=== PATIENT | female | born 1990 | race Caucasian/White ===

== ENCOUNTER 2016-05-13 19:00 | Emergency (ER) | payer MEDICAID ==
[~2016-05-13] VITALS: Ht 175.3 cm; Wt 91.8 kg
[~2016-05-13 19:00] MED LIST: AUGM875T PO; DIFL100T PO; MOME17I EACH NARE
[2016-05-13 19:30] VITALS: BP 100/69; PULSE 109; RESP 18; TEMP 101.2; O2SAT 98
--- NOTE | 2016-05-13 19:40 | PD ---
HPI Chief Complaint: Cold / Flu Symptoms Time Seen by Provider: 19:40 Travel History International Travel<30 days: No Contact w/Intl Traveler<30days: No History of Present Illness HPI 26-year-old female presents to the ED for evaluation 3 day history of sore throat, fevers, sinus congestion, rhinorrhea, nonproductive cough. Patient is a current smoker. Symptoms onset gradually. Patient endorses nausea as well as a history of recurrent strep pharyngitis. She denies headache, dizziness, difficulty swallowing, chest pain, shortness of breath, abdominal pain, dysuria , back pain. No treatment attempted at home. Patient states that she gets "terrible yeast infections" with amoxicillin and has not completed antibiotics the last few times due to this. Denies chronic health problems, takes no daily medications. NKDA. PFSH Past Medical History Asthma: No Blood Disorders: No Anxiety: Yes (PANIC ATTACKS) Heart Rhythm Problems: No Cancer: No Cardiovascular Problems: No High Cholesterol: No Chemotherapy: No Chest Pain: No Congestive Heart Failure: No COPD: No Diabetes: No Diminished Hearing: No Endocrine: No Genitourinary: No Immune Disorder: No Kidney Stones: Yes Musculoskeletal: No Neurologic: No Psychiatric: No Reproductive: No Respiratory: No Radiation Therapy: No Sleep Apnea: No Thyroid Disease: No : 1 Para: 0 Miscarriage: 0 Past Surgical History Other Surgery: No Social History Alcohol Use: No Tobacco Use: No Substance Use: Yes (WEED ) Allergies-Medications (Allergen,Severity, Reaction): Coded Allergies: Naproxen (Verified Allergy, Intermediate, DIZZINESS, 05/13/16) Latex (Verified Allergy, Mild, RASH, 05/13/16) Reported Meds & Prescriptions Reported Meds & Active Scripts Active Keflex (Cephalexin) 500 Mg Cap 500 Mg PO Q12H 10 Days Review of Systems Except as stated in HPI: all other systems reviewed are Neg Physical Exam Narrative GENERAL: Well-nourished, well-developed ill-appearing white female in no acute distress. SKIN: Warm and dry. HEAD: Normocephalic. Atraumatic. EYES: No scleral icterus. No injection or drainage. PERRLA. EOMI. ENT: Pearly chairez tympanic membranes bilaterally. Nasal mucosa is moist. Oropharynx mild to moderate erythema and scattered white exudates. Tonsils 1+ bilaterally. Airway patent. Uvula midline. NECK: Supple, trachea midline. No JVD. Tender right-sided anterior cervical lymphadenopathy. CARDIOVASCULAR: Regular rate and rhythm without murmurs, gallops, or rubs. 2+ DP and radial pulses bilaterally. RESPIRATORY: Breath sounds clear and equal bilaterally. No accessory muscle use. GASTROINTESTINAL: Abdomen soft, non-tender, nondistended. + Bowel sounds MUSCULOSKELETAL: No cyanosis, or edema. Patient is observed to walk with a normal gait. BACK: Nontender without obvious deformity. No CVA tenderness. Data Data Last Documented VS Vital Signs Date Time Temp Pulse Resp B/P Pulse Ox O2 Delivery O2 Flow Rate FiO2 05/13/16 19:40 Room Air 05/13/16 19:30 101.2 109 18 100/69 98 Orders Acetaminophen (Tylenol) (05/13/16 20:00) Ibuprofen (Motrin) (05/13/16 20:00) Ondansetron Odt (Zofran Odt) (05/13/16 20:00) Cephalexin (Keflex) (05/13/16 20:00) Group A Rapid Strep Screen (05/13/16 19:46) MDM Medical Decision Making Medical Screen Exam Complete: Yes Emergency Medical Condition: Yes Differential Diagnosis Viral syndrome versus sinusitis versus pharyngitis versus strep pharyngitis versus influenza versus other Narrative Course 26-year-old female presents to the ED for evaluation 3 day history of sore throat, fevers, sinus congestion, rhinorrhea, nonproductive cough, nausea. Patient is a current smoker, endorses history of recurrent strep throat. She denies headache, dizziness, difficulty swallowing, chest pain, shortness of breath, abdominal pain, dysuria, back pain. Patient states that she gets "terrible yeast infections" with amoxicillin and has not completed antibiotics the last few times due to this. Vitals reviewed. Patient is febrile and tachycardic on presentation. Physical exam reveals an ill-appearing white female in no acute distress. Primary tympanic membranes bilaterally. Oropharynx moderately erythematous with patchy white exudates. Tonsils 1+ bilaterally. Uvula midline. Airway patent. Positive right-sided tender lymphadenopathy, remaining physical exam is otherwise unremarkable. Patient was administered sublingual Zofran, by mouth Tylenol, by mouth ibuprofen and by mouth Keflex. She was allowed to orally rehydrate. On recheck the patient does endorse improvement of her symptoms. She is prescribed Keflex 500 mg twice a day for the next 10 days. She is instructed to continue with Tylenol and Motrin as needed for pain and fevers, take all medication as prescribed, follow up with the ENT. She indicated understanding of instructions and is amenable to plan of care. This patient is stable and discharged home. Diagnosis Primary Impression: Strep pharyngitis Referrals: Ear / Nose / Throat Specialist Patient Instructions: General Instructions, Strep Throat (ED) Additional Instructions: Rest, hydrate. Push fluids such as sports drinks, Pedialyte, popsicles, clear broth. Alternating Motrin and Tylenol every 4-6 hours as needed for continued fever. Take all antibiotics as prescribed, even if your symptoms improve during the course of treatment. Replace toothbrush at the end of this illness. Follow-up with the ear nose throat specialist for evaluation of recurrent strep throat.. Return to the ED for any urgent or emergent medical condition. Med/Other Pt SpecificInfo: Prescription(s) given Scripts Cephalexin (Keflex)500 Mg [id number] Mg PO Q12H 10 Days Ref 0 Prov:Pete Delong MD 05/13/16 Disposition: 01 DISCHARGE HOME Condition: Stable Jessica Henry May 13, 2016 19:40
[2016-05-13] MEDS ORDERED: CEPH-460 PO (19:49)
[2016-05-13] MEDS ORDERED: ACETAMINOPHEN 500 MG CPLT PO ONE (20:00)
[2016-05-13] MEDS ORDERED: ONDANSETRON ODT 4 MG TAB PO ONE (20:00)
[2016-05-13] MEDS ORDERED: IBUPROFEN 600 MG TAB PO ONE (20:00)
[2016-05-13] MEDS ORDERED: CEPHALEXIN MONOHYDRATE 500 MG CAP PO ONE (20:00)
[2016-05-13 20:21] VITALS: TEMP 100.3
== END 2016-05-13 20:22 | disposition home or self-care (01) ==
LOC: PHEFT 19:00
DX: J02.0 Streptococcal pharyngitis (principal); F17.210 Nicotine dependence, cigarettes, uncomplicated
CPT/HCPCS: 87081; 87880; 99283

== ENCOUNTER 2017-07-17 08:41 | Emergency (ER) | payer SELFPAY ==
[~2017-07-17] VITALS: Ht 175.3 cm; Wt 96.9 kg
[~2017-07-17 08:41] MED LIST changes: -AUGM875T PO; +CEPH-460 PO; -DIFL100T PO; -MOME17I EACH NARE
[2017-07-17 08:49] VITALS: BP 106/56; PULSE 83; RESP 16; TEMP 98.6; O2SAT 98
--- NOTE | 2017-07-17 09:09 | PD ---
HPI Chief Complaint: ENT Complaint Time Seen by Provider: 08:59 Travel History International Travel<30 days: No Contact w/Intl Traveler<30days: No Traveled to known affect area: No History of Present Illness HPI 27-year-old female presents emergency department for evaluation of mild cough, sore throat, sinus congestion and pain that has been persistent for approximately 1 week. Patient states that she gets sinus infections occasionally and feels this may be one. She says that she normally takes Zyrtec however, did not keep up with this medication to reduce her symptoms and believes now she has developed sinus infection. Says that her sinus tenderness located in the maxillary area that radiates to the cheeks. Says she is has had subjective fevers but denies chills, shortness of breath, chest pain. She denies significant cough but again has a slight cough secondary to the possible postnasal drip. 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 Patient states she works in the [employer] and is in close contact with others. PFSH Past Medical History Hx Anticoagulant Therapy: No Asthma: No Blood Disorders: No Anxiety: Yes (PANIC ATTACKS) Heart Rhythm Problems: No Cancer: No Cardiovascular Problems: No High Cholesterol: No Chemotherapy: No Chest Pain: No Congestive Heart Failure: No COPD: No Cerebrovascular Accident: No Diabetes: No Diminished Hearing: No Endocrine: No Genitourinary: No Immune Disorder: No Kidney Stones: Yes Musculoskeletal: No Neurologic: No Psychiatric: No Reproductive: Yes (IUD IN PLACE) Respiratory: No Radiation Therapy: No Sleep Apnea: No Thyroid Disease: No ?: Not LMP: about a month ago : 1 Para: 0 Miscarriage: 0 Past Surgical History Hysterectomy: No Other Surgery: No Social History Alcohol Use: Yes (SOCIALLY) Tobacco Use: Yes (1/2PPD) Substance Use: Yes (WEED ) Allergies-Medications (Allergen,Severity, Reaction): Coded Allergies: naproxen (Unverified Allergy, Intermediate, DIZZINESS, 07/17/17) latex (Unverified Allergy, Mild, RASH, 07/17/17) Reported Meds & Prescriptions Reported Meds & Active Scripts Active Medrol Dosepak (Methylprednisolone) 4 Mg Dspk 4 Mg PO DIRECTED Per Pharmacist direction Augmentin (Amoxicillin-Clavulanate) 875-125 Mg Tab 1 Tab PO BID 7 Days Keflex (Cephalexin) 500 Mg Cap 500 Mg PO Q12H 10 Days Review of Systems Except as stated in HPI: all other systems reviewed are Neg Physical Exam Narrative GENERAL: Well-nourished, well-developed patient. SKIN: Focused skin assessment warm/dry. HEAD: Normocephalic. EYES: No scleral icterus. No injection or drainage. Tenderness to palpation of the maxillary sinuses, no lymphadenopathy THROAT: No pharyngeal injection, exudates, or tonsillar hypertrophy. Airway is patent. NECK: Supple, trachea midline. No JVD or lymphadenopathy. CARDIOVASCULAR: Regular rate and rhythm without murmurs, gallops, or rubs. RESPIRATORY: Breath sounds equal bilaterally. No accessory muscle use. MUSCULOSKELETAL: No cyanosis, or edema. BACK: Nontender without obvious deformity. No CVA tenderness. Data Data Last Documented VS Vital Signs Date Time Temp Pulse Resp B/P (MAP) Pulse Ox O2 Delivery O2 Flow Rate FiO2 07/17/17 08:49 98.6 83 16 106/56 (73) 98 Orders Orders Ed Discharge Order (07/17/17 09:12) MDM Medical Decision Making Medical Screen Exam Complete: Yes Emergency Medical Condition: Yes Differential Diagnosis Strep pharyngitis, viral pharyngitis, sinusitis, allergic rhinitis, postnasal drip Narrative Course 27 year female presents emergency department for acute sinusitis. Her signs and symptoms are consistent with acute sinusitis. Because her symptoms have been going on for 1 week and she has not taken [id number] medications regularly to reduce her congestion, advised that she start the prednisone pack prior to starting the antibiotics. Based off of her history and physical, I do not see that she has strep pharyngitis although I did offer testing today. Patient be discharged advised follow-up with her primary care physician. Return for worsening or persistent symptoms. Diagnosis Primary Impression: Sinusitis Qualified Codes: J01.00 - Acute maxillary sinusitis, unspecified Referrals: Primary Care Physician Additional Instructions: You may use a drop of honey and lemon in a cup of warm water to soothe your cough and sinus congestion. (If you are greater than 1 year old) Ensure good hydration and a nutritious diet. Ensure you exercise regularly to boost her immune system and promote health. Take the prednisone for 1-2 days. If your symptoms persist or do not improve, start the antibiotics. Note that viral infection symptoms may last for several weeks if you have a viral illness. Follow up with your primary physician within 2-3 days. Return to the ED for worsening or persistent symptoms. Scripts Methylprednisolone Dosepak (Medrol Dosepak) 4 Mg Dspk 4 MG PO DIRECTED, #1 DSPK 0 Refills Per Pharmacist direction Prov: Tavo Masters MD 07/17/17 Amoxicillin-Clavulanate (Augmentin) 875-125 Mg Tab 1 TAB PO BID for Infection for 7 Days, #14 TAB 0 Refills Prov: Tavo Masters MD 07/17/17 Disposition: 01 DISCHARGE HOME Condition: Stable Suni Mcdonald July 17, 2017 09:09
[2017-07-17] MEDS ORDERED: MEDR4PAK PO (09:10)
[2017-07-17] MEDS ORDERED: AUGM875T3 PO (09:10)
== END 2017-07-17 09:32 | disposition home or self-care (01) ==
LOC: PHED 08:41
DX: J01.00 Acute maxillary sinusitis, unspecified (principal); F41.0 Panic disorder [episodic paroxysmal anxiety]; F17.210 Nicotine dependence, cigarettes, uncomplicated; F12.90 Cannabis use, unspecified, uncomplicated; Z87.442 Personal history of urinary calculi; Z97.5 Presence of (intrauterine) contraceptive device
CPT/HCPCS: 99283